=== PATIENT | female | born 1960 | race Caucasian/White ===

== ENCOUNTER 2021-10-05 13:01 | Emergency (ER) | payer MEDICAID ==
[~2021-10-05] VITALS: Ht 162.6 cm; Wt 59.9 kg
[2021-10-05 13:24] VITALS: BP 157/110
[2021-10-05] MEDS ORDERED: ALBU18HF2 INH (14:37)
[2021-10-05] MEDS ORDERED: AZIT1PAC9 PO (14:37)
[2021-10-05] MEDS ORDERED: PRED20TA PO (14:37)
== END 2021-10-05 14:49 | disposition home or self-care (01) ==
LOC: ER 13:07
DX: J20.9 Acute bronchitis, unspecified (principal); Z20.822 Contact with and (suspected) exposure to COVID-19; R03.0 Elevated blood-pressure reading, without diagnosis of hypertension
CPT/HCPCS: 99283; C9803; U0003